=== PATIENT | male | born 1950 | race Caucasian/White ===

== ENCOUNTER 2016-12-08 15:14 | Emergency (ER) | payer MEDICARE, OTHER ==
[2016-12-08 15:33] VITALS: BP 124/79
--- OUTSIDE RECORDS SUMMARY | 2016-12-08 18:30 | XMS REPORT | Continuity of Care Document ---
:1950 Author Organization [facility] ([facility]) Address [address] [place] [address] Phone [phone] Care Team Providers Name Role Phone Georges Ku Primary Care Provider [phone] Source Comments This disclosure is being made pursuant to the Care Everywhere program, applicable federal and state laws, and may not contain all informaitonavailable regarding this patient.[facility] ([facility]) Active Allergies and Adverse Reactions Allergen Noted Date Severity Reactions Comments Mold 09/18/2014 Pruritus No Known Allergies 09/08/2012 NO REACTION Current Medications Prescription Sig. Disp. Refills Start Date End Date Status aspirin 81 mg Take 1 Tab by mouth 30 Tab 11 09/22/2011 Active chewable tablet daily. Indications: Cerebral Thromboembolism Prevention acetaminophen 650 mg Take 0.5-1 Tabs by 45 Tab 6 09/22/2011 Active Tab mouth every 6 hours as needed for Pain. DO NOT EXCEED 4000 mg of acetaminophen from all sources Indications: Pain ascorbic acid Take 500 mg by mouth Active (VITAMIN C) 500 mg daily. tablet clopidogrel 75 mg Take 75 mg by mouth Active tablet daily. atorvastatin 40 mg Take 40 mg by mouth Active tablet every evening. lithium carbonate Take 450 mg by mouth 2 Active 450 mg ER tablet times daily. LORazepam 2 mg Take 2 mg by mouth as Active tablet needed. vardenafil (LEVITRA) Take 20 mg by mouth as Active 20 mg tablet needed. metoPROLol tartrate Take 1 Tab by mouth 180 Tab 3 07/31/2014 Active 50 mg tablet every 12 hours. Indications: HYPERTENSION amLODIPine 5 mg Take 2 Tabs by mouth 180 Tab 4 10/24/2014 Active tablet daily. Indications: HYPERTENSION DULoxetine 30 mg XR Take 30 mg by mouth Active capsule daily. naltrexone 50 mg Take 50 mg by mouth Active tablet daily. Active Problems Problem Noted Date Left carotid artery stenosis 05/09/2016 Weakness of right side of body 06/23/2014 History of stroke - paramedian pontine 2012 06/23/2014 Carotid artery stenosis 04/14/2012 Prostate cancer 03/17/2012 Elevated prostate specific antigen (PSA) 01/13/2011 Most Recent Encounters Date Type Specialty Providers Description 11/20/2016 Hospital Encounter General Surgery Vladimir Boone MD 11/18/2016 Telephone Neurology Lloyd Chirinos, Chief Comp: Other Maddy Segura 11/18/2016 [facility] MD Vladimir RADIOLOGY STENT ASSISTED PERCUTANEOUS TRANSLUMINAL ANGIOPLASTY (SAPTA) 11/12/2016 Anesthesia Event General Surgery Soheila Pichardo RN 11/10/2016 Telephone Neurology Steph Saha ARNP 09/18/[address] [facility], Canceled IR NEURO MD Vladimir RADIOLOGY PROCEDURE 09/18/2016 Orders/Notes Neurology Steph Saha, Dx: Left carotid SPECIAL PROCEDURES TECHNOLOGIST artery stenosis (Primary Dx) 09/18/[address] [facility], Canceled NEURO MD Vladimir INTERVENTIONAL RADIOLOGY STENT ASSISTED PERCUTANEOUS TRANSLUMINAL ANGIOPLASTY (SAPTA) Immunizations Name Dates Previously Given Next Due Influenza, unspecified 05/24/2013 Social History Tobacco Use Types Packs/Day Years Used Date Never Smoker Smokeless Tobacco: Never Used Tobacco Cessation:Counseling Given: Yes Comments: Alcohol Use Drinks/Week oz/Week Comments Yes 3 Standard drinks or equivalent several glasses of scotch over the weekend Last Filed Vital Signs Vital Sign Reading Time Taken Blood Pressure 154/90 06/04/2016 9:16 AM CDT Pulse 100 06/04/2016 9:16 AM CDT Temperature 36.6 C (97.9 F) 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 Respiratory Rate 16 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 Height 1.803 m (5' 11") 05/07/2016 12:01 PM CDT Weight 78.019 kg (172 lb) 05/07/2016 12:01 PM CDT Body Mass Index 24 05/07/2016 12:01 PM CDT Oxygen Saturation 95% 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
== END 2016-12-08 15:45 | disposition left against medical advice (07) ==
LOC: ER 15:14
DX: Z53.21 Procedure and treatment not carried out due to patient leaving prior to being seen by health care provider (principal)